=== PATIENT | female | born 1995 | race American Indian/Alaskan Native ===

== ENCOUNTER 2019-01-15 14:15 | Emergency (ER) | payer OTHER ==
--- NOTE | 2019-01-15 15:14 | Emergency Department Report ---
Blank Doc - Documentation Documentation: This is a 23-year-old female that presents with bilateral eyes redness and irr itation. Deneis any trauma or visual changes. This initial assessment/diagnostic orders/clinical plan/treatment(s) is/are subject to change based on patient's health status, clinical progression and re- assessment by fellow clinical providers in the ED. Further treatment and workup at subsequent clinical providers discretion. Patient/guardians urged not to elope from the ED as their condition may be serious if not clinically assessed and managed. Initial orders include: 1- Patient sent to [facility] for further evaluation and treatment
[2019-01-15 19:57] VITALS: BP 142/90
--- NOTE | 2019-01-15 19:57 | Emergency Department Report ---
[facility] Duration: 4 Days Side: Bilateral Severity: mild Symptoms: Yes Eye Redness, Yes Eye Pain, Yes Mucous Drainage, No Eye Itching, No Purulent Drainage, No Blurred Vision, No Preceding URI, No H/O Allergic Rhinitis, No Contact Lens Use, No Trauma, No Fever, No Headache Other History: Pt is a 23 yo female who presents to the ED with c/o bilateral eye erythema and clear drainage that began 4 days ago. She states it first started in the right eye then spread to the left eye. She states when she woke up this morning her eyelashes were matted together. She denies any sick contacts but does have a young child in school. The patient denies any vision problems or anything getting in the eyes. She does not wear contacts. <SAMANTHA COLE - Last Filed: 01/15/19 19:50> <ALFREDA WERNER - Last Filed: 01/16/19 02:02> Chief Complaint: Eye Problems Stated Complaint: POSS P[facility] EYE Time Seen by Provider: 01/15/19 15:13 ED Review of Systems ROS: Stated complaint: POSS PINK EYE Other details as noted in HPI Comment: All other systems reviewed and negative <SAMANTHA COLE - Last Filed: 01/15/19 19:50> ROS: Stated complaint: POSS PINK EYE Other details as noted in HPI <ALFREDA WERNER - Last Filed: 01/16/19 02:02> ED Past Medical Hx - Past Medical History Previous Medical History?: No - Surgical History Past Surgical History?: No - Social History Smoking Status: Never Smoker Substance Use Type: None <SAMANTHA COLE - Last Filed: 01/15/19 19:50> <ALFREDA WERNER - Last Filed: 01/16/19 02:02> - Medications Home Medications: Home Medications Medication Instructions Recorded Confirmed Last Taken Type Polymyxin B Sulf/Trimethoprim 10 ml OP Q3HR 7 Days #1 bottle 01/15/19 Unknown Rx [Polytrim Eye Drops] [facility] Exam - Exam General: Vital signs noted. No distress. Alert and acting appropriately. Eye Exam: Both Injection (mild), Both EOMI, Both Mucous Discharge (small amount of green crusted drainage ), Neither Chemosis, Neither Abnormal Pupil, Neither Eye Foreign Body, Neither Lid Foreign Body, Neither Photophobia HEENT: No Nasal Congestion, No Pharyngeal Erythema Remainder of HEENT: Normal <SAMANTHA COLE - Last Filed: 01/15/19 19:50> - Exam General: Vital signs noted. No distress. Alert and acting appropriately. <ALFREDA WERNER - Last Filed: 01/16/19 02:02> ED Course Vital Signs 01/15/19 15:13 Temperature 99.3 F Pulse Rate 102 H Respiratory 16 Rate Blood Pressure 154/91 O2 Sat by Pulse 98 Oximetry <SAMANTHA COLE - Last Filed: 01/15/19 19:50> Vital Signs 01/15/19 01/15/19 15:13 19:56 Temperature 99.3 F Pulse Rate 102 H 98 H Respiratory 16 17 Rate Blood Pressure 154/91 Blood Pressure 142/90 [Left] O2 Sat by Pulse 98 100 Oximetry <ALFREDA WERNER - Last Filed: 01/16/19 02:02> ED Medical Decision Making - Medical Decision Making Pt presents with bilateral conjunctivitis. denies anything getting in the eye or contact use. Will tx with polytrim drops. Advised to follow up with PCP in the next 2-3 days for conjunctivitis and elevation in blood pressure. Repeat BP 140/90. - Differential Diagnosis Conjunctivitis viral, bacterial, allergic <SAMANTHA COLE - Last Filed: 01/15/19 19:50> Critical care attestation.: If time is entered above; I have spent that time in minutes in the direct care of this critically ill patient, excluding procedure time. <SAMANTHA COLE - Last Filed: 01/15/19 19:50> Critical care attestation.: If time is entered above; I have spent that time in minutes in the direct care of this critically ill patient, excluding procedure time. <ALFREDA WERNER - Last Filed: 01/16/19 02:02> ED Disposition Is pt being admited?: No Does the pt Need Aspirin: No Time of Disposition: 19:57 <SAMANTHA COLE - Last Filed: 01/15/19 19:50> Is pt being admited?: No Does the pt Need Aspirin: No <ALFREDA WERNER - Last Filed: 01/16/19 02:02> Clinical Impression: Conjunctivitis Qualifiers: Conjunctivitis type: acute Acute conjunctivitis type: unspecified Laterality: bilateral Qualified Code(s): H10.33 - Unspecified acute conjunctivitis, bilateral Disposition: - TO HOME OR SELFCARE Condition: Stable Instructions: Conjunctivitis (ED) Additional Instructions: Use medication as prescribed. Wash hands well, very contagious. Follow up with your primary care doctor in the next 2-3 days. Discuss with your primary care doctor your elevation in your blood pressure. Return to the emergency room for any new or worsening symptoms. Prescriptions: Polymyxin B Sulf/Trimethoprim [Polytrim Eye Drops] 10 ml OP Q3HR 7 Days #1 bottle Referrals: NANCY TIDWELL MD [Primary Care Provider] - 2-3 Days Forms: Accompanied Note, Work/School Release Form(ED) Print Language: HUNGARIAN
== END 2019-01-15 20:07 | disposition home or self-care (01) ==
LOC: ED 14:15
DX: H10.33 Unspecified acute conjunctivitis, bilateral (principal)
CPT/HCPCS: 99283

== ENCOUNTER 2019-04-11 22:59 | Emergency (ER) | payer SELFPAY ==
[2019-04-11 23:08] VITALS: BP 132/74
[2019-04-12 00:40] LABS: Color,Urine Yellow (Yellow)
[2019-04-12 00:41] LABS: Amorphous Crystals,Urine Few; Bacteria,Urine 1+ /HPF (Negative); Bilirubin,Urine NEG (Negative); Blood,Urine NEG (Negative); Protein,Urine <15 mg/dL mg/dL (Negative); Urobilinogen,Urine < 2.0 mg/dL (<2.0)
[2019-04-12 01:01] LABS: HCG Qualitative,Urine Negative (Negative)
[2019-04-12 01:02] LABS: WBC,Urine < 1.0 /HPF (0.0-6.0)
[2019-04-12 03:32] LABS: Basophils % (Auto) 0.6 % (0.0-1.8); Eosinophils # (Auto) 0.2 K/mm3 (0.0-0.4); Eosinophils % (Auto) 2.6 % (0.0-4.3); Hematocrit 35.6 % (30.3-42.9); Hemoglobin 11.6 gm/dl (10.1-14.3); Lymphocytes # (Auto) 1.9 K/mm3 (1.2-5.4); Lymphocytes % (Auto) 23.2 % (13.4-35.0); Mean Corpuscular HGB Conc 33 % (30-34); Mean Corpuscular Volume 80 fl (79-97); Monocytes # (Auto) 0.5 K/mm3 (0.0-0.8); Monocytes % (Auto) 6.4 % (0.0-7.3); Platelet Count 314 K/mm3 (140-440); Red Blood Count 4.43 M/mm3 (3.65-5.03); Red Cell Distribution Width 15.2 % (13.2-15.2)
[2019-04-12 04:02] LABS: Alanine Aminotransferase 12 units/L (7-56); BUN/Creatinine Ratio 15; Blood Urea Nitrogen 9 mg/dL (7-17); Calcium 9.1 mg/dL (8.4-10.2); Hemolysis Index 14
--- NOTE | 2019-04-12 04:47 | Emergency Department Report ---
ED Abdominal Pain HPI - General Chief Complaint: Abdominal Pain Stated Complaint: ABD PAIN Time Seen by Provider: 04/12/19 02:44 Source: patient Mode of arrival: Ambulatory Limitations: No Limitations - History of Present Illness Initial Comments: pt is s 23 y/o aaf who presents for abd pain x 1 week described as cramping LLQ , there is no fever no chills no n/v /d LMP 1 month ago, pt denies vaginal bleeding no vaginal discharge, no hx of fibroids or ovarian cyst pt is tolerating po intake without n/v. MD Complaint: abdominal pain Onset/Timin -: week(s) Location: LLQ Radiation: LLQ Migration to: no migration Severity: moderate Severity scale (0 -10): 6 Quality: cramping Consistency: constant Improves With: nothing, eating Worsens With: nothing Associated Symptoms: nausea, vomiting. denies: diarrhea, fever, chills, constipation, dysuria, hematemesis, hematochezia, melena, hematuria, anorexia, syncope - Related Data LMP (females 10-50): 1 month Previous Rx's Medication Instructions Recorded Last Taken Type Polymyxin B Sulf/Trimethoprim 10 ml OP Q3HR 7 Days #1 bottle 01/15/19 Unknown Rx [Polytrim Eye Drops] Ibuprofen [Motrin 800 MG tab] 800 mg PO Q8HR PRN #30 tablet 04/12/19 Unknown Rx Allergies Allergy/AdvReac Type Severity Reaction Status Date / Time No Known Allergies Allergy Unverified 01/15/19 15:15 ED Review of Systems ROS: Stated complaint: ABD PAIN Other details as noted in HPI Constitutional: denies: chills, fever Eyes: denies: eye pain, eye discharge, vision change ENT: denies: ear pain, throat pain Respiratory: denies: cough, shortness of breath, wheezing Cardiovascular: denies: chest pain, palpitations Endocrine: no symptoms reported Gastrointestinal: abdominal pain, hematochezia. denies: nausea, vomiting, diarrhea, constipation, hematemesis Genitourinary: denies: urgency, dysuria, discharge Musculoskeletal: denies: back pain, joint swelling, arthralgia Skin: denies: rash, lesions Neurological: denies: headache, weakness, paresthesias Psychiatric: denies: anxiety, depression Hematological/Lymphatic: denies: easy bleeding, easy bruising ED Past Medical Hx - Past Medical History Previous Medical History?: No - Surgical History Past Surgical History?: No - Social History Smoking Status: Never Smoker Substance Use Type: None - Medications Home Medications: Home Medications Medication Instructions Recorded Confirmed Last Taken Type Polymyxin B Sulf/Trimethoprim 10 ml OP Q3HR 7 Days #1 bottle 01/15/19 Unknown Rx [Polytrim Eye Drops] Ibuprofen [Motrin 800 MG tab] 800 mg PO Q8HR PRN #30 tablet 04/12/19 Unknown Rx ED Physical Exam - General Limitations: No Limitations General appearance: alert, in no apparent distress - Head Head exam: Present: atraumatic, normocephalic, normal inspection - Eye Eye exam: Present: normal appearance, PERRL, EOMI Pupils: Present: normal accommodation - ENT ENT exam: Present: normal orophraynx, mucous membranes moist, TM's normal bilaterally - Neck Neck exam: Present: normal inspection, full ROM. Absent: tenderness, meningismus, lymphadenopathy, thyromegaly - Respiratory Respiratory exam: Present: normal lung sounds bilaterally. Absent: respiratory distress, wheezes, stridor, chest wall tenderness - Cardiovascular Cardiovascular Exam: Present: regular rate, normal rhythm, normal heart sounds. Absent: systolic murmur, diastolic murmur, rubs, gallop - GI/Abdominal GI/Abdominal exam: Present: soft, normal bowel sounds. Absent: distended, tenderness, guarding, rebound, rigid, organomegaly, mass, bruit, hernia - Rectal Rectal exam: Present: deferred, normal inspection, bloody stool. Absent: normal rectal tone, decreased rectal tone - External exam: Present: other (deferred ) - Extremities Exam Extremities exam: Present: normal inspection, full ROM, normal capillary refill, pedal edema, joint swelling. Absent: tenderness, calf tenderness - Back Exam Back exam: Present: normal inspection, full ROM, rash noted. Absent: tenderness, CVA tenderness (R), CVA tenderness (L), muscle spasm, paraspinal tenderness, vertebral tenderness - Neurological Exam Neurological exam: Present: oriented X3, CN II-XII intact, normal gait, reflexes normal - Psychiatric Psychiatric exam: Present: normal affect, normal mood, depressed, agitated, flat affect, manic, suicidal ideation. Absent: anxious - Skin Skin exam: Present: warm, dry, intact, normal color. Absent: rash, cyanosis, urticaria, pallor, abrasion, ecchymosis ED Course Vital Signs 04/11/19 23:04 Temperature 99.1 F Pulse Rate 91 H Respiratory 16 Rate Blood Pressure 132/74 O2 Sat by Pulse 99 Oximetry ED Medical Decision Making - Lab Data Result diagrams: 04/12/19 03:11 04/12/19 03:11 Lab Results 04/11/19 04/12/19 04/12/19 Range/Units 23:45 03:11 03:11 WBC 8.2 (4.5-11.0) K/mm3 RBC 4.43 (3.65-5.03) M/mm3 Hgb 11.6 (10.1-14.3) gm/dl Hct 35.6 (30.3-42.9) % MCV 80 (79-97) fl MCH 26 L (28-32) pg MCHC 33 (30-34) % RDW 15.2 (13.2-15.2) % Plt Count 314 (140-440) K/mm3 Lymph % (Auto) 23.2 (13.4-35.0) % Stone % (Auto) 6.4 (0.0-7.3) % Eos % (Auto) 2.6 (0.0-4.3) % Baso % (Auto) 0.6 (0.0-1.8) % Lymph # 1.9 (1.2-5.4) K/mm3 Stone # 0.5 (0.0-0.8) K/mm3 Eos # 0.2 (0.0-0.4) K/mm3 Baso # 0.0 (0.0-0.1) K/mm3 Seg Neutrophils % 67.2 (40.0-70.0) % Seg Neutrophils # 5.5 (1.8-7.7) K/mm3 Sodium 136 L (137-145) mmol/L Potassium 3.7 (3.6-5.0) mmol/L Chloride 100.0 (98-107) mmol/L Carbon Dioxide 24 (22-30) mmol/L Anion Gap 16 mmol/L BUN 9 (7-17) mg/dL Creatinine 0.6 L (0.7-1.2) mg/dL Estimated GFR > 60 ml/min BUN/Creatinine Ratio 15 % Glucose 106 H (65-100) mg/dL Calcium 9.1 (8.4-10.2) mg/dL Total Bilirubin 0.20 (0.1-1.2) mg/dL AST 15 (5-40) units/L ALT 12 (7-56) units/L Alkaline Phosphatase 82 (35-129) units/L Total Protein 7.3 (6.3-8.2) g/dL Albumin 4.0 (3.9-5) g/dL Albumin/Globulin Ratio 1.2 % Lipase 26 (13-60) units/L Urine Color Yellow (Yellow) Urine Turbidity Cloudy (Clear) Urine pH 8.0 H (5.0-7.0) Ur Specific [place] 1.025 (1.003-1.030) Urine Protein <15 mg/dl (Negative) mg/dL Urine Glucose (UA) Neg (Negative) mg/dL Urine Ketones Neg (Negative) mg/dL Urine Blood Neg (Negative) Urine Nitrite Neg (Negative) Urine Bilirubin Neg (Negative) Urine Urobilinogen < 2.0 (<2.0) mg/dL Ur Leukocyte Esterase Tr (Negative) Urine WBC (Auto) < 1.0 (0.0-6.0) /HPF Urine RBC (Auto) 3.0 (0.0-6.0) /HPF U Epithel Cells (Auto) 6.0 (0-13.0) /HPF Urine Bacteria (Auto) 1+ (Negative) /HPF Amorphous Crystals Few Urine HCG, Qual Negative (Negative) - Radiology Data Radiology results: report reviewed, image reviewed Ordering Physician: JOSE ONTIVEROS NP Date of Service: 04/12/19 Procedure(s): XR abdomen 1V ap Accession Number(s): [id number] cc: JOSE ONTIVEROS NP Fluoro Time In Minutes: PROCEDURE: XR ABDOMEN 1V AP TECHNIQUE: Abdominal radiograph, single view. HISTORY: abd pain COMPARISONS: None . FINDINGS: Nonobstructive bowel gas pattern. No evident pneumoperitoneum. No suspicious calcification or fracture. IUD noted. IMPRESSION: No acute findings. Consider additional imaging for worsening/persistent symptoms. This document is electronically signed by Erwin Palacios MD., April 12 2019 04:59:25 AM ET Transcribed By: YOKO Dictated By: ERWIN PALACIOS MD Electronically Authenticated By: ERWIN PALACIOS MD Signed Date/Time: 04/12/19 050 DD/ 9 TD/TT: 04/12/19440 - Medical Decision Making Abdomina. pain is resolved is tolerating po intake without n/v, hcg is neg, explained xray findings including intact IUD,to patient who now advises that she really wanted to make sure IUD was inplace there is no vaginal bleeding no vaginal dischareg pt denies STI symptoms or vaginal exam, plan: ibuprofen prn pain, pt will follow up with [facility] in 2-3 days or return to ed if symptoms worsen. Critical care attestation.: If time is entered above; I have spent that time in minutes in the direct care of this critically ill patient, excluding procedure time. ED Disposition Clinical Impression: IUD (intrauterine device) in place Abdominal pain Qualifiers: Abdominal location: left lower quadrant Qualified Code(s): R10.32 - Left lower quadrant pain Disposition: - TO HOME OR SELFCARE Is pt being admited?: No Does the pt Need Aspirin: No Condition: Stable Instructions: Abdominal Pain (ED) Prescriptions: Ibuprofen [Motrin 800 MG tab] 800 mg PO Q8HR PRN #30 tablet PRN Reason: pain Referrals: CHRISTINE HILL MD [Staff Physician] - 3-5 Days Forms: Work/School Release Form(ED) Time of Disposition: 05:23
--- NOTE | 2019-04-12 05:01 | XRay Report ---
PROCEDURE: XR ABDOMEN 1V AP TECHNIQUE: Abdominal radiograph, single view. HISTORY: abd pain COMPARISONS: None . FINDINGS: Nonobstructive bowel gas pattern. No evident pneumoperitoneum. No suspicious calcification or fractur e. IUD noted. IMPRESSION: No acute findings. Consider additional imaging for worsening/persistent symptoms. This document is electronically signed by Erwin Lopez MD., April 12 2019 04:59:25 AM ET
== END 2019-04-12 05:33 | disposition home or self-care (01) ==
LOC: ED 22:59
DX: Z30.430 Encounter for insertion of intrauterine contraceptive device (principal)
CPT/HCPCS: 36415; 74018; 80053; 81001; 81025; 83690; 85025; 99284